=== PATIENT | male | born 1975 | race Caucasian/White ===

== ENCOUNTER 2017-11-27 21:23 | Emergency (ER) | payer OTHER ==
[~2017-11-27] VITALS: Ht 182.8 cm; Wt 119.7 kg
[~2017-11-27 21:23] MED LIST: AMLODIPINE BESYL5 MG PO; ANAPROX DS550 MG PO; AUGMENTIN 875875 MG PO; CLARITIN10 MG PO; HYDROCODONE BIT1 T11 PO; IBU800 MG PO; KEFLEX500 MG PO; LOMOTIL 0.025 M1 TA1 PO; NAPROSYN500 MG PO; ROBITUSSIN DM 105 ML PO; VICODIN 5/500 505 MG PO; ZITHROMAX Z PA250 MG PO; ZOFRAN ODT4 MG SL
[2017-11-27] MEDS ORDERED: ZOVIRAX400 MG PO (23:10)
== END 2017-11-28 01:38 | disposition home or self-care (01) ==
LOC: ED 21:23
DX: A60.01 Herpesviral infection of penis (principal); I10 Essential (primary) hypertension; Z98.890 Other specified postprocedural states; Z88.5 Allergy status to narcotic agent; Z79.899 Other long term (current) drug therapy

== ENCOUNTER 2018-02-24 09:58 | Emergency (ER) | payer OTHER ==
[~2018-02-24] VITALS: Ht 182.8 cm; Wt 122.5 kg
[~2018-02-24 09:58] MED LIST changes: +ZOVIRAX400 MG PO
[2018-02-24] MEDS ORDERED: CHLORZOXAZONE500 M2 PO (12:24)
[2018-04-15] MEDS ORDERED: LOSARTAN POTASS50 M1 PO (18:22)
[2018-04-15] MEDS ORDERED: NAPROSYN500 MG PO (21:15)
[2018-04-15] MEDS ORDERED: PENICILLIN VK500 MG PO (21:15)
== END 2018-02-24 12:46 | disposition home or self-care (01) ==
LOC: ED 09:58
DX: G44.209 Tension-type headache, unspecified, not intractable (principal); M54.2 Cervicalgia; I10 Essential (primary) hypertension; Z88.6 Allergy status to analgesic agent